=== PATIENT | female | born 1975 | race Caucasian/White ===

== ENCOUNTER 2017-05-25 20:37 | Emergency (ER) | payer OTHER ==
[~2017-05-25] VITALS: Ht 149.9 cm; Wt 68.0 kg
[2017-05-25 20:41] VITALS: BP 127/74
--- NOTE | 2017-05-25 20:45 | NUR ---
TO LOBBY, V/S STABLE, AMB, FOR CHEST XRAY, A/W FOR BED, ERMYves NOTED
--- NOTE | 2017-05-25 22:58 | NUR ---
41 Y/O F W/C/O NON-PRODUCTIVE COUGH X LAST NIGH. PT DENIES ANY FEVER. MID R WHEEZES NOTED. PT DENIES ANY MED HX.ER MADE AWARE.
[2017-05-25] MEDS ORDERED: ALBUTEROL SULFATE/IPRATROPIU 3 ML SOL IH ONE (23:05)
[2017-05-25] MEDS ORDERED: ALBUTEROL 0.083% 2.5 MG/3 ML NEBU INH ONE (23:05)
[2017-05-25] MEDS ORDERED: predniSONE 20 MG TAB PO ONE (23:05)
[2017-05-26 00:12] VITALS: BP 127/74
--- NOTE | 2017-05-26 00:12 | NUR ---
PATIENT LEFT WITHOUT BEING SEEN BY DR. HERNANDEZ. NO FURTHER CARE PROVIDED FOR PATIENT.
== END 2017-05-26 00:12 | disposition left against medical advice (07) ==
LOC: MED 20:37
DX: R05 Cough (principal); Z53.21 Procedure and treatment not carried out due to patient leaving prior to being seen by health care provider
CPT/HCPCS: 71046; 94640; 94760; 99281; J7512; J7613; J7620

== ENCOUNTER 2018-01-05 01:33 | Emergency (ER) | payer OTHER ==
[~2018-01-05] VITALS: Ht 149.9 cm; Wt 68.0 kg
[2018-01-05 01:37] VITALS: BP 123/92
--- NOTE | 2018-01-05 01:37 | NUR ---
PT IN BED 6 PREBOOK. BIB [place] [employer]. VSS.
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
[2018-01-05] MEDS ORDERED: DOXYCYCLINE 100 MG CAP PO SCH (02:15)
[2018-01-05] MEDS ORDERED: ACETAMINOPHEN EXTRA STRENGTH 500 MG TAB PO ONE (02:20)
[2018-01-05 02:54] VITALS: BP 123/92
--- NOTE | 2018-01-05 02:55 | NUR ---
Patient discharged with v/s stable. Written and verbal after care instructions given and explained. Patient alert, oriented and verbalized understanding of instructions. Police with in custody. All questions addressed prior to discharge. ID band removed. Patient advised to follow up with PMD. Rx of DOXYCYCLINE was given. Patient educated on indication of medication including possible reaction and side effects. Opportunity to ask questions provided and answered.
== END 2018-01-05 02:54 ==
LOC: MED 01:33
DX: Z02.89 Encounter for other administrative examinations (principal); S05.41XA Penetrating wound of orbit with or without foreign body, right eye, initial encounter; W54.0XXA Bitten by dog, initial encounter; Y93.89 Activity, other specified; Y92.89 Other specified places as the place of occurrence of the external cause; Y99.8 Other external cause status
CPT/HCPCS: 90471; 90715; 99283

== ENCOUNTER 2018-08-20 22:41 | Emergency (ER) | payer OTHER ==
[~2018-08-20] VITALS: Ht 149.9 cm; Wt 72.6 kg
[2018-08-20 22:57] VITALS: BP 123/83
--- NOTE | 2018-08-20 22:59 | NUR ---
TO LOBBY A/W BED, AMA GUAN NOTED
--- NOTE | 2018-08-20 23:24 | NUR ---
PT AMBULATED TO BED 12
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
--- NOTE | 2018-08-21 00:03 | NUR ---
PATIENT DISCHARGED BY AMA BERRY, ABLE TO AMBULATE, NO SIGNS OF RESPIRATORY DISTRESS, GIVEN RX FOR TRAZADONE, PATIENT WAS EDUCATED AND ALL QUESTIONS ANSWERED ON PRESCRIPTION AND TX. TOLD TO FOLLOW UP WITH CARE.
[2018-08-21 00:09] VITALS: BP 123/83
== END 2018-08-21 00:03 | disposition home or self-care (01) ==
LOC: MED 22:41
DX: F41.9 Anxiety disorder, unspecified (principal)
CPT/HCPCS: 99283

== ENCOUNTER 2018-08-28 12:53 | Emergency (ER) | payer OTHER ==
[~2018-08-28] VITALS: Ht 149.9 cm; Wt 72.6 kg
--- NOTE | 2018-08-28 13:06 | NUR ---
NO ANSWER IN ER LOBBY
--- NOTE | 2018-08-28 13:25 | NUR ---
NO ANSWER IN ER LOBBY
[2018-08-28 13:40] VITALS: BP 148/88
--- NOTE | 2018-08-28 13:40 | NUR ---
PATIENT AMBULATED TO BED 1.
--- NOTE | 2018-08-28 13:40 | NUR ---
PT BEDSIDE TRIAGED IN BED 1, REPORT TO DARREL RICO
--- NOTE | 2018-08-28 13:50 | NUR ---
PT BIB SELF TO THE ED WITH THE CHIEF C/O LEFT UPPER DENTAL PAIN X 2 DAYS. HAS NOT TAKEN ANY PAIN MEDICINE. PT FEELS DIFFERENT STRONG TEST WHEN TOUCHED CAVITY WITH TONGUE. NO DENTAL VISIT RECENTLY. SWOLLEN GUM NOTED. NO DISCHARGE. NO REDNESS. TENDERNESS PRESENT. DENIES FEVER. DENIES N/V/D. DENIES ANY OTHER PROBLEM. DENIES PAIN AT THIS TIME. VSS. ER AWARE.
[2018-08-28] MEDS ORDERED: HYDROcodone/APAP 5/325 MG 1 TAB TAB PO ONE (14:55)
[2018-08-28 15:35] VITALS: BP 135/86
--- NOTE | 2018-08-28 15:35 | NUR ---
Patient discharged with v/s stable. Written and verbal after care instructions given and explained. Patient alert, oriented and verbalized understanding of instructions. Ambulatory with steady gait. All questions addressed prior to discharge. ID band removed. Patient advised to follow up with PMD. Rx of PENICILLIN vk given. Patient educated on indication of medication including possible reaction and side effects. Opportunity to ask questions provided and answered.
== END 2018-08-28 15:35 | disposition home or self-care (01) ==
LOC: MED 12:53
DX: K08.89 Other specified disorders of teeth and supporting structures (principal); F41.9 Anxiety disorder, unspecified
CPT/HCPCS: 99283

== ENCOUNTER 2018-09-02 10:58 | Emergency (ER) | payer OTHER ==
[~2018-09-02] VITALS: Ht 149.9 cm; Wt 72.6 kg
--- NOTE | 2018-09-02 10:58 | NUR ---
PT VINCENZOA BLS TO ER BED 09
[2018-09-02 11:10] VITALS: BP 123/79
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
--- NOTE | 2018-09-02 12:50 | NUR ---
DR HERNANDEZ AT BEDSIDE FOR PT EVALUATION
[2018-09-02 13:28] VITALS: BP 136/79
== END 2018-09-02 13:28 | disposition home or self-care (01) ==
LOC: MED 10:58
DX: F41.9 Anxiety disorder, unspecified (principal); F15.90 Other stimulant use, unspecified, uncomplicated; F17.200 Nicotine dependence, unspecified, uncomplicated
CPT/HCPCS: 99284

== ENCOUNTER 2021-07-17 13:04 | Emergency (ER) | payer OTHER ==
[~2021-07-17] VITALS: Ht 149.9 cm; Wt 72.1 kg
[2021-07-17 13:09] VITALS: BP 159/97
--- NOTE | 2021-07-17 13:15 | NUR ---
45 Y/O F AMBULATED TO BED 1, C/O DIFFICULTY BREATHING ,COUGH, MID CP, SORE THROAT X 3 DAYS. DAUGHTER GOT A NEW DOG POSSIBLE ALLERGIC REACTOION PMH: ASTHMA NKDA
--- NOTE | 2021-07-17 13:15 | NUR ---
PATIENT AMBULATED TO BED 1.
[2021-07-17] MEDS ORDERED: WATER STERILE 10 ML MC ONE (13:43)
[2021-07-17] MEDS ORDERED: methylPREDNISolone SS 125 MG/2 ML VIAL ONE (13:44)
[2021-07-17] MEDS: methylPREDNISolone SS 125 MG in WATER STERILE 2 ML IM ONE (13:46)
--- NOTE | 2021-07-17 13:54 | NUR ---
RT AT BEDSIDE GIVING BREATHING TREATMENT
--- NOTE | 2021-07-17 14:00 | NUR ---
RT FINISHED BREATHING TREATMENT PT TOLERATED WELL
[2021-07-17] MEDS: ALBUTEROL SULFATE/IPRATROPIU 3 ML SOL IH ONE (14:01)
[2021-07-17] MEDS: ACETAMINOPHEN 325 MG TAB PO ONE (14:11)
--- NOTE | 2021-07-17 14:12 | NUR ---
XR AT BEDSIDE WITH PORTABLE XR FOR CXR
[2021-07-17] MEDS ORDERED: ALBU0.0912 IH (14:44)
[2021-07-17] MEDS ORDERED: PRED20TA5 PO (14:44)
[2021-07-17] MEDS ORDERED: LORA10TA19 PO (14:44)
--- NOTE | 2021-07-17 15:01 | NUR ---
Patient discharged with v/s stable. Written and verbal after care instructions ABOUT BRONCHOSPASM AND ASTHMA ATTACK given and explained. Patient alert, oriented and verbalized understanding of instructions. Ambulatory with steady gait. All questions addressed prior to discharge. ID band removed. Patient advised to follow up with PMD. Rx of ALBUTEROL SULFATE, CLARITIN, AND PREDNISONE given. Patient educated on indication of medication including possible reaction and side effects. Opportunity to ask questions provided and answered.
== END 2021-07-17 15:01 | disposition home or self-care (01) ==
LOC: MED 13:04
DX: J45.901 Unspecified asthma with (acute) exacerbation (principal); J98.01 Acute bronchospasm; F17.210 Nicotine dependence, cigarettes, uncomplicated; Z79.899 Other long term (current) drug therapy
CPT/HCPCS: 71045; 96372; 99283; J2930; Q0092

== ENCOUNTER 2021-08-29 00:19 | Emergency (ER) | payer OTHER ==
[~2021-08-29] VITALS: Ht 149.9 cm; Wt 76.2 kg
[~2021-08-29 00:19] MED LIST: ALBU0.0912 IH; LORA10TA19 PO; PRED20TA5 PO
[2021-08-29 00:20] VITALS: BP 140/90
--- NOTE | 2021-08-29 00:20 | NUR ---
TO BED AMBULATORY
--- NOTE | 2021-08-29 00:58 | NUR ---
Dr. Emanuel examining patient.
[2021-08-29] MEDS ORDERED: FAMOTIDINE 20 MG TAB PO ONE (01:00)
[2021-08-29] MEDS ORDERED: DICYCLOMINE HCL LIQUID 20 MG, ALUMINUM HYD/MAG/SIMETHICONE 30 ML, LIDOCAINE VISCOUS 2% ... PO ONE ×3 (01:00)
--- NOTE | 2021-08-29 01:00 | NUR ---
Fredy kaur in [facility], [place] - 08/29/21 at 0122 by [id number]
--- NOTE | 2021-08-29 01:00 | NUR ---
PATIENT PRESENTS TO ED WITH ABD PAIN 11/30 AND SOB X1 DAY . PT STATES SOB AFTER EXPOSURE TO DOG/CATS. SHE TOOK PREDNISONE AND IT STARTED TO HURT STOMACH LIKE ACID BURNING PAIN 09/30 . DENIES N/V/D; SKIN IS PINK/WARM/DRY; AAOX4 WITH EVEN AND STEADY GAIT; LUNGS WHEEZY; HR EVEN AND REGULAR; PT DENIES ANY FEVER, CP, OR COUGH AT THIS TIME; PT STATES SOB BUT PT ON ROOM AIR WITH 02 AT 99% ON ROOM AIR. PT FEELS SLEEPY VSS; PATIENT POSITIONED FOR COMFORT; HOB ELEVATED; BEDRAILS UP X2; BED DOWN. ER MD MADE AWARE OF PT STATUS. SOCIAL HX: 1 CIGARETTE PER DAY ALLERGIES: DOGS/CATS PMH:ASTHMA
[2021-08-29] MEDS ORDERED: ALUMINUM HYD/MAG/SIMETHICONE 30 ML UDC ONE (01:11)
[2021-08-29] MEDS ORDERED: DICYCLOMINE HCL LIQUID 10 MG/5 ML UDC ONE (01:12)
[2021-08-29 01:18] LABS: BASOPHILS # (AUTO) 0.1 K/uL (0.00-0.22); EOSINOPHILS # (AUTO) 0.4 K/uL (0-0.4); EOSINOPHILS % (AUTO) 4.5 % (0.0-4.0); HEMATOCRIT 42.2 % (36-48); HEMOGLOBIN 14.3 g/dL (12.0-16.0); LYMPHOCYTES % (AUTO) 32.6 % (20.5-51.1); MEAN CORPUSCULAR HEMOGLOBIN 30 pg (27-31); MEAN CORPUSCULAR HGB CONC 34 g/dL (33-37); MEAN CORPUSCULAR VOLUME 87.5 fL (80-94); MONOCYTES # (AUTO) 0.7 K/uL (0.8-1.0); MONOCYTES % (AUTO) 7.9 % (1.7-9.3); PLATELET COUNT (AUTO) 328 K/uL (140-450); RED BLOOD CELL COUNT(AUTO) 4.82 MIL/uL (4.20-5.40); RED CELL DISTRIBUTION WIDTH 13.2 % (11.6-13.7); WHITE BLOOD COUNT (AUTO) 9.2 K/uL (4.8-10.8)
[2021-08-29 01:54] LABS: ALBUMIN 3.7 g/dL (3.4-5.0); ANION GAP 9.1 (8-16); CARBON DIOXIDE 31.3 mmol/L (21-32); CREATININE 0.9 mg/dL (0.6-1.3); POTASSIUM 4.4 mmol/L (3.5-5.1); TOTAL BILIRUBIN 0.8 mg/dL (0.0-1.0)
[2021-08-29] MEDS ORDERED: OMEP40EC24 PO (03:28)
[2021-08-29 03:44] VITALS: BP 127/89
--- NOTE | 2021-08-29 03:44 | NUR ---
Patient discharged with v/s stable. Written and verbal after care instructions given and explained. Patient alert, oriented and verbalized understanding of instructions. Ambulatory with steady gait. All questions addressed prior to discharge. ID band removed. Patient advised to follow up with PMD. Rx of PRILOSEC given. Opportunity to ask questions provided and answered.
--- NOTE | 2021-08-29 05:08 | NUR ---
The patient's care was reviewed and supervised by Kamini Jett RN.
[2021-08-31] MEDS ORDERED: OMEP40EC24 PO (09:55)
== END 2021-08-29 03:44 | disposition home or self-care (01) ==
LOC: MED 00:19
DX: K29.70 Gastritis, unspecified, without bleeding (principal); R03.0 Elevated blood-pressure reading, without diagnosis of hypertension; J45.909 Unspecified asthma, uncomplicated; F17.210 Nicotine dependence, cigarettes, uncomplicated; Z79.899 Other long term (current) drug therapy
CPT/HCPCS: 36415; 80053; 81025; 83690; 85025; 99285

== ENCOUNTER 2022-07-25 14:11 | Emergency (ER) | payer OTHER ==
[~2022-07-25] VITALS: Ht 149.9 cm; Wt 71.0 kg
[~2022-07-25 14:11] MED LIST changes: +OMEP40EC24 PO
[2022-07-25 14:22] VITALS: BP 125/76
--- NOTE | 2022-07-25 14:25 | NUR ---
PT AMB TO BED 9. HANDED ON URINE CUP.
--- NOTE | 2022-07-25 14:27 | NUR ---
46/F WALKED IN C/O EPIGASTRIC PAIN ACCOMPANIED BY NAUSEA ONSET LAST NIGHT. PMH: ASTHMA, STOMACH ULCER
[2022-07-25] MEDS ORDERED: DICYCLOMINE HCL LIQUID 20 MG, ALUMINUM HYD/MAG/SIMETHICONE 30 ML, LIDOCAINE VISCOUS 2% ... PO ONE ×3 (14:30)
[2022-07-25] MEDS ORDERED: ALUMINUM HYD/MAG/SIMETHICONE 30 ML UDC ONE (14:38)
[2022-07-25] MEDS ORDERED: DICYCLOMINE HCL LIQUID 10 MG/5 ML UDC ONE (14:38)
[2022-07-25] MEDS ORDERED: ONDANSETRON 4 MG ODT ONE (14:39)
[2022-07-25] MEDS ORDERED: ONDANSETRON 4 MG ODT PO ONE (14:40)
[2022-07-25] MEDS ORDERED: OMEP40EC23 PO (14:43)
[2022-07-25] MEDS ORDERED: ONDA8TAB87 PO (14:43)
--- NOTE | 2022-07-25 14:45 | NUR ---
Patient discharged with v/s stable. Written and verbal after care instructions given and explained. Patient alert, oriented and verbalized understanding of instructions. Ambulatory with steady gait. All questions addressed prior to discharge. ID band removed. Patient advised to follow up with PMD. Rx given. Patient educated on indication of medication including possible reaction and side effects. Opportunity to ask questions provided and answered. reports decreased nausea and epigastric pain
== END 2022-07-25 14:45 | disposition home or self-care (01) ==
LOC: MED 14:11
DX: R10.13 Epigastric pain (principal); R11.0 Nausea; J45.909 Unspecified asthma, uncomplicated; Z79.899 Other long term (current) drug therapy
CPT/HCPCS: 99283; Q0162

== ENCOUNTER 2023-07-30 11:06 | Emergency (ER) | payer OTHER ==
[~2023-07-30] VITALS: Ht 149.9 cm; Wt 68.0 kg
[~2023-07-30 11:06] MED LIST changes: +OMEP40EC23 PO; +ONDA8TAB87 PO
[2023-07-30 11:36] VITALS: BP 134/88; PULSE 94; RESP 18; TEMP 97.3; O2SAT 99
[2023-07-30] MEDS ORDERED: ALBU0.0912 IH (12:47)
[2023-07-30] MEDS ORDERED: CEPH-588 PO (12:47)
[2023-07-30] MEDS ORDERED: BACTO TP (12:47)
[2023-07-30 12:59] VITALS: BP 131/86; PULSE 87; TEMP 98.2; O2SAT 99
== END 2023-07-30 12:59 | disposition home or self-care (01) ==
LOC: MED 11:06
DX: L73.9 Follicular disorder, unspecified (principal); Z76.0 Encounter for issue of repeat prescription; J45.909 Unspecified asthma, uncomplicated; Z79.899 Other long term (current) drug therapy
CPT/HCPCS: 99284

== ENCOUNTER 2023-08-17 19:24 | Emergency (ER) | payer OTHER ==
[~2023-08-17 19:24] MED LIST changes: +BACTO TP; +CEPH-588 PO
== END 2023-08-17 19:57 | disposition left against medical advice (07) ==
LOC: MED 19:24
DX: R06.02 Shortness of breath (principal); Z53.21 Procedure and treatment not carried out due to patient leaving prior to being seen by health care provider